=== PATIENT | male | born 1990 | race Caucasian/White ===

== ENCOUNTER 2020-03-31 11:21 | Emergency (ER) | payer OTHER ==
[~2020-03-31] VITALS: Ht 167 cm; Wt 58.9 kg
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
[2020-03-31] MEDS ORDERED: fentaNYL INJECTION 100 MCG/2 ML AMP IVP ONE (11:45)
[2020-03-31 11:52] LABS: BASOPHILS # (AUTO) 0.1 10^3/uL (0.0-0.1); BASOPHILS % (AUTO) 1 % (0-10); EOSINOPHILS # (AUTO) 0.1 10^3/uL (0.0-0.3); EOSINOPHILS % (AUTO) 1 % (0-10); HEMATOCRIT 42 % (40-54); HEMOGLOBIN 14.5 G/DL (13.3-17.7); LYMPHOCYTES # (AUTO) 2.7 X 10^3 (1.0-4.0); LYMPHOCYTES % (AUTO) 22 % (12-44); MEAN CORPUSCULAR HEMOGLOBIN 31 PG (25-34); MEAN CORPUSCULAR HGB CONC 35 G/DL (32-36); MEAN CORPUSCULAR VOLUME 89 FL (80-99); MEAN PLATELET VOLUME 8.7 FL (7.4-10.4); MONOCYTES # (AUTO) 0.9 X 10^3 (0.0-1.0); MONOCYTES % (AUTO) 7 % (0-12); NEUTROPHILS # (AUTO) 8.2 X 10^3 (1.8-7.8); NEUTROPHILS % (AUTO) 67 % (42-75); PLATELET COUNT 469 10^3/uL (130-400); RED CELL DISTRIBUTION WIDTH 11.7 % (10.0-14.5); WHITE BLOOD COUNT 12.3 10^3/uL (4.3-11.0)
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
[2020-03-31 12:13] LABS: ALANINE AMINOTRANSFERASE 17 U/L (0-55); ALKALINE PHOSPHATASE 103 U/L (40-136); BILIRUBIN,TOTAL 0.5 MG/DL (0.1-1.0); BUN/CREATININE RATIO 24; CALCIUM 9.8 MG/DL (8.5-10.1); CARBON DIOXIDE 26 MMOL/L (21-32); CHLORIDE 101 MMOL/L (98-107); CREATININE SERUM 0.78 MG/DL (0.60-1.30); GFR ESTIMATED > 60; GLUCOSE 80 MG/DL (70-105); POTASSIUM 4.1 MMOL/L (3.6-5.0); SODIUM 138 MMOL/L (135-145)
[2020-03-31 12:14] LABS: ALBUMIN 3.9 GM/DL (3.2-4.5); TOTAL PROTEIN 7.2 GM/DL (6.4-8.2)
[2020-03-31 12:27] LABS: FIBRIN DEGRADATION PRODUCTS 6.6 UG/ML (0.00-0.49); PROTHROMBIN TIME PATIENT 13.1 SEC (12.2-14.7)
[2020-03-31] MEDS ORDERED: CATHETER FLUSH 10 ML SYR IV PRN (12:45)
[2020-03-31] MEDS ORDERED: IOHEXOL 350 MG/ML 100 ML (OMNIPAQUE 350) VIAL IV ONE (12:45)
[2020-03-31] MEDS ORDERED: HOLD METFORMIN - RECEIVED CONTRAST 20 ML VIAL IV SCH (12:45)
[2020-03-31] MEDS ORDERED: NS 100 ML (IVPB) BAG IV ONE (12:45)
--- NOTE | 2020-03-31 13:24 | Diagnostic Imaging Report ---
PROCEDURE: CT angiography of the chest with contrast. TECHNIQUE: Multiple contiguous axial images were obtained through the chest after uneventful bolus administration of intravenous contrast. 3D reconstructed CTA MIP acquisitions were also performed. Auto Exposure Controls were utilized during the CT exam to meet ALARA standards for radiation dose reduction. INDICATION: Right-sided chest pain with dyspnea and elevated D-dimer. COMPARISON: Plain film same date. DISCUSSION: Patchy consolidation is noted within the left lower lobe consistent with pneumonia. Small adjacent left pleural effusion. No pulmonary embolus identified. Normal heart size. No pericardial fluid. No adenopathy. The thoracic aorta is normal in caliber and configuration. The visualized upper abdomen is unremarkable. No osseous abnormality identified. Multiple Schmorl's nodes are noted throughout the thoracic spine, chronic. IMPRESSION: 1. Left lower lobe pneumonia with small effusion. 2. No pulmonary embolus identified. Dictated by: Dictated on workstation # [id number]
[2020-03-31] MEDS ORDERED: CEFEPIME INJECTION 2,000 MG in WATER (STERILE) FOR INJECTION 20 ML IV ONE (14:00)
[2020-03-31] MEDS ORDERED: VANCOMYCIN INJECTION 1,000 MG in NS (IVPB) 250 ML IV ONE (14:00)
--- NOTE | 2020-03-31 14:27 | NUR ---
Attempted to contact patients aunt to give update. Number called states it is not in service. Notified patient.
--- NOTE | 2020-03-31 16:05 | NUR ---
[facility] accepted patient transfer
[2020-03-31 16:19] VITALS: BP 124/83
== END 2020-03-31 16:57 | disposition short-term general hospital (02) ==
LOC: ER FS 11:23
DX: J15.9 Unspecified bacterial pneumonia (principal); Z87.828 Personal history of other (healed) physical injury and trauma; Z88.0 Allergy status to penicillin
CPT/HCPCS: 36415; 71046; 71275; 80053; 84484; 85025; 85379; 85610; 85730; 87040; 93005

== ENCOUNTER → 2020-04-04 | Outpatient (CLI) | payer OTHER ==
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
== END ==
LOC: RAD FS 09:05
PROVIDERS: ATTEND Nurse Practitioner Family
DX: Z09 Encounter for follow-up examination after completed treatment for conditions other than malignant neoplasm (principal); J18.9 Pneumonia, unspecified organism; M43.8X4 Other specified deforming dorsopathies, thoracic region; Z87.01 Personal history of pneumonia (recurrent)
CPT/HCPCS: 71046